=== PATIENT | male | born 1970 | race Caucasian/White ===

== ENCOUNTER → 2017-04-27 | Outpatient (CLI) | payer OTHER ==
[2017-04-27 10:25] LABS: APPEARANCE,URINE CLEAR; BILIRUBIN,URINE NEGATIVE (NEGATIVE); GLUCOSE, URINE NEGATIVE (NEGATIVE); KETONES,URINE NEGATIVE (NEGATIVE); LEUKOCYTE ESTERASE,URINE NEGATIVE (NEGATIVE); NITRITE,URINE NEGATIVE (NEGATIVE); PROTEIN,URINE NEGATIVE (NEGATIVE); URINE SPECIFIC GRAVITY 1.003; UROBILINOGEN,URINE NEGATIVE mg/dL (<2.0)
--- NOTE | 2017-04-27 15:50 | RADIOLOGY REPORT (SQ) ---
EXAM DESCRIPTION: U/S SCROTUM W/DOPPLER COMPLETED DATE/TIME: 04/27/2017 11:41 am REASON FOR STUDY: R TESTICLE LESION N50.9 DISORDER OF MALE GENITAL ORGANS, UNSPECIFIED R31.21 ASYM PTOMATIC MICROSCOPIC HEMATURIA COMPARISON: None. TECHNIQUE: Static and realtime nielsen scale imaging of the scrotum and testes. Selected color Doppler and spectral images recorded to document blood flow. LIMITATIONS: None. FINDINGS: RIGHT: TESTICLE: Normal size, 3.9 x 2.7 x 2.7 cm in size. Normal echotexture. Normal blood flow. No primar y intra testicular mass. EPIDIDYMIS: Normal. HYDROCELE OR VARICOCELE: Trace hydrocele HERNIA OR EXTRA-TESTICULAR MASS: No. OTHER: Along the tunica in the area of palpable abnormality indicated by the patient, there is a dens jus shadowing calcification measuring 5 x 4 mm in size. 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 Aga in, this appears to be superficial to the testicular parenchyma. LEFT: TESTICLE: Normal size 4.5 x 3.3 x 1.9 cm in size. Normal echotexture. Normal blood flow. No mass. EPIDIDYMIS: Normal. HYDROCELE OR VARICOCELE: No. HERNIA OR EXTRA-TESTICULAR MASS: No. OTHER: No other significant finding. 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 This appears to be superficial to the right testicle. TECHNICAL DOCUMENTATION: JOB ID: [id number] [employer]- All Rights Reserved
== END ==
LOC: RAD 09:02
PROVIDERS: ATTEND Urology
DX: N50.9 Disorder of male genital organs, unspecified (principal); R31.21 Asymptomatic microscopic hematuria
CPT/HCPCS: 76870; 81001; 93976

== ENCOUNTER 2020-03-14 17:17 | Observation (INO) | payer OTHER ==
[2020-03-14 17:58] LABS: ABSOLUTE BASOPHILS # (AUTO) 0.1 10^3/uL (0.0-0.2); ABSOLUTE EOSINOPHILS # (AUTO) 0.2 10^3/uL (0.0-0.6); ABSOLUTE LYMPHOCYTES (AUTO) 3.2 10^3/uL (0.5-4.7); ABSOLUTE MONOCYTES (AUTO) 1.2 10^3/uL (0.1-1.4); ABSOLUTE NEUT (AUTO) 9.7 10^3/uL (1.7-8.2); BASOPHILS % (AUTO) 0.6 % (0-2); EOSINOPHILS % (AUTO) 1.2 % (0-6); HEMATOCRIT 36.1 % (37.9-51.0); HEMOGLOBIN 12.4 g/dL (13.5-17.0); LYMPHOCYTES % (AUTO) 22.1 % (13-45); MEAN CORPUSCULAR HEMOGLOBIN 28.2 pg (27.0-33.4); MEAN CORPUSCULAR HGB CONC 34.3 g/dL (32.0-36.0); MEAN CORPUSCULAR VOLUME 82 fl (80-97); MONOCYTES % (AUTO) 8.6 % (3-13); PLATELET COUNT 322 10^3/uL (150-450); RED CELL DISTRIBUTION WIDTH 16.9 % (11.5-14.0); SEGMENTED NEUTROPHILS % (AUTO) 67.5 % (42-78); TOTAL CELLS COUNTED % (AUTO) 100 %; WHITE BLOOD COUNT 14.4 10^3/uL (4.0-10.5)
--- NOTE | 2020-03-14 18:05 | ER Document Report ---
ED General - General Stated Complaint: RESPIRATORY DISTRESS Primary Care Provider: MELBA LOTT MD [NO LOCAL MD] - Follow up as needed Mode of Arrival: Medic Information source: Patient Notes: Patient is a pleasant 50-year-old male presenting to the emergency department chief complaint of shortness of breath and heat exhaustion. Patient states that he did drink a lot of water and Gatorade today but was outside doing landscaping type work and began to be short of breath and then very weak. At time of presentation patient is alert but showing signs of malaise and fatigue. He states he is taking his medications as previously prescribed. Patient denies travel history trauma history or any sick contacts. Patient has been nauseated and vomited once no diarrhea. No one else at home is similarly ill. TRAVEL OUTSIDE OF THE [place] IN LAST 30 DAYS: No - HPI Onset: Just prior to arrival Onset/Duration: Gradual Quality of pain: Achy Severity: Moderate Pain Level: 3 Associated symptoms: Body/muscle aches, Nausea, Weakness. denies: Diarrhea, Vomiting Exacerbated by: Movement Relieved by: Denies Similar symptoms previously: No Recently seen / treated by doctor: No - Related Data Allergies/Adverse Reactions: No Known Allergies Allergy (Verified 03/14/20 18:30) Past Medical History - General Information source: Patient - Social History Smoking Status: Current Every Day Smoker Cigarette use (# per day): Yes Chew tobacco use (# tins/day): No Smoking Education Provided: Yes Frequency of alcohol use: None Drug Abuse: None Lives with: Family Family History: Reviewed & Not Pertinent Patient has suicidal ideation: No Patient has homicidal ideation: No - Past Medical History Cardiac Medical History: Denies: Hx Heart Attack, Hx Hypertension Pulmonary Medical History: Denies: Hx Asthma Neurological Medical History: Denies: Hx Cerebrovascular Accident, Hx Seizures GI Medical History: Denies: Hx Hepatitis, Hx Hiatal Hernia, Hx Ulcer Infectious Medical History: Denies: Hx Hepatitis Past Surgical History: Denies: Hx Open Heart Surgery, Hx Pacemaker Review of Systems - Review of Systems Notes: REVIEW OF SYSTEMS: CONSTITUTIONAL : Per HPI EENT: Denies eye, ear, throat, or mouth pain or symptoms. Denies nasal or sinus congestion. CARDIOVASCULAR: Denies chest pain. RESPIRATORY: Per HPI GASTROINTESTINAL: Denies abdominal pain. Denies nausea, vomiting, or diarrhea. Denies constipation. GENITOURINARY: Denies difficulty urinating, painful urination, burning, frequency, or blood in urine. MUSCULOSKELETAL: Per HPI SKIN: Denies rash or skin lesions. HEMATOLOGIC : Denies easy bruising or bleeding. NEUROLOGICAL: Denies altered mental status or loss of consciousness. Denies headache. Denies weakness or paralysis or loss of use of either side. Denies problems with gait or speech. Denies sensory or motor loss. PSYCHIATRIC: Denies suicidal or homicidal ideations 10 Systems are negative unless otherwise specified above Physical Exam - Vital signs Vitals: Temp 97.7 F 03/14/20 17:20 - Notes Notes: PHYSICAL EXAMINATION: GENERAL: Patient is a 50-year-old male presenting to the emergency department for heat exhaustion, at time of presentation patient is showing signs of malaise and fatigue. HEAD: Atraumatic, normocephalic. EYES: Pupils equal round and reactive to light, extraocular movements intact, sclera anicteric, conjunctiva are injected ENT: nares patent, oropharynx clear without exudates. Dry mucous membranes. NECK: Normal range of motion, supple without lymphadenopathy, no appreciable JVD LUNGS: Lungs demonstrate crackles to the right base HEART: Tachycardic rate and rhythm without murmurs ABDOMEN: Soft, nontender, decreased bowel sounds. No guarding, no rebound. No masses appreciated. EXTREMITIES: Active full range of motion, no pitting or edema. No cyanosis. 2+ pulses x4 patient has no cramps at this time NEUROLOGICAL: No focal neurological deficits. Moves all extremities spontaneously and on command. Patient is alert and oriented x3 but is demonstrating signs of malaise fatigue and somnolence SKIN: Warm, Dry, and intact. Decreased skin turgor and erythematous. 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 Patient has remained stable but still is complaining of cramps and generalized weakness. I have identified the patient to be hyponatremic blood sodium level of 119. This is concerning for possible seizures and patient will be consulted to the hospitalist for admission. Patient is receiving IV fluids for rehydration secondary to his heat exposure. Patient received 1 L of lactated Ringer's in the field and has received 1 L bolus of normal saline followed by 125 cc/h. 09/02/20 19:39 I did talk with the hospitalist he is agreeable with admitting the patient for heat exhaustion and hyponatremia. Patient is stable at this time. - Vital Signs Vital signs: Temp Pulse Resp BP Pulse Ox 97.7 F 24 H 123/79 99 03/14/20 17:20 03/14/20 19:01 03/14/20 19:01 03/14/20 19:01 - Laboratory Result Diagrams: 03/14/20 17:30 03/14/20 17:30 Laboratory results interpreted by me: 03/14/20 03/14/20 17:30 17:30 WBC 14.4 H Hgb 12.4 L Hct 36.1 L RDW 16.9 H Absolute Neuts (auto) 9.7 H Sodium 119.2 L* Chloride 87 L - Diagnostic Test Radiology reviewed: Reports reviewed - EKG Interpretation by Me EKG shows normal: Sinus rhythm Rate: Normal Rhythm: NSR When compared to previous EKG there are: Previous EKG unavailable Discharge - Discharge Clinical Impression: Hyponatremia Heat exhaustion Qualifiers: Encounter type: initial encounter Qualified Code(s): T67.5XXA - Heat exhaustion, unspecified, initial encounter Condition: Fair Disposition: ADMITTED OBSERVATION Admitting Provider: Arlet (Hospitalist) Unit Admitted: Medical Floor Referrals: MELBA LOTT MD [NO LOCAL MD] - Follow up as needed
[2020-03-14 18:16] LABS: ALKALINE PHOSPHATASE 105 U/L (38-126); ANION GAP 9 (5-19); ASPARTATE AMINO TRANSFERASE 22 U/L (17-59); BILIRUBIN,DIRECT 0.3 mg/dL (0.0-0.4); BILIRUBIN,TOTAL 0.7 mg/dL (0.2-1.3); BLOOD UREA NITROGEN 10 mg/dL (7-20); CARBON DIOXIDE 23 mmol/L (22-30); CHLORIDE 87 mmol/L (98-107); GLUCOSE 93 mg/dL (75-110); POTASSIUM 3.9 mmol/L (3.6-5.0); TOTAL PROTEIN 6.6 g/dL (6.3-8.2)
--- NOTE | 2020-03-14 18:19 | RADIOLOGY REPORT (SQ) ---
EXAM DESCRIPTION: CHEST SINGLE VIEW IMAGES COMPLETED DATE/TIME: 03/14/2020 5:02 pm REASON FOR STUDY: SOB COMPARISON: None. EXAM PARAMETERS: NUMBER OF VIEWS: One view. TECHNIQUE: Single frontal radiographic view of the chest acquired. RADIATION DOSE: NA LIMITATIONS: None. FINDINGS: LUNGS AND PLEURA: Lungs are hyperinflated. No focal consolidation or pleural effusion. N o pneumothorax. MEDIASTINUM AND HILAR STRUCTURES: No masses. Contour normal. HEART AND VASCULAR STRUCTURES: Heart normal in size. Normal vasculature. BONES: No acute findings. HARDWARE: None in the chest. OTHER: No other significant finding. IMPRESSION: NO ACUTE RADIOGRAPHIC FINDING IN THE CHEST. TECHNICAL DOCUMENTATION: JOB ID: [id number] [employer]- All Rights Reserved Reading location - IP/workstation name: [email or web address]
[2020-03-14] MEDS: NORMAL SALINE 1000 ML 1,000 ML IV PRN ×2 (18:25→19:01)
[2020-03-14 18:58] LABS: APPEARANCE,URINE CLEAR; BILIRUBIN,URINE NEGATIVE (NEGATIVE); COLOR,URINE STRAW; GLUCOSE, URINE NEGATIVE (NEGATIVE); KETONES,URINE NEGATIVE (NEGATIVE); LEUKOCYTE ESTERASE,URINE NEGATIVE (NEGATIVE); NITRITE,URINE NEGATIVE (NEGATIVE); PROTEIN,URINE NEGATIVE (NEGATIVE); URINE SPECIFIC GRAVITY 1.002; UROBILINOGEN,URINE NEGATIVE mg/dL (<2.0)
[2020-03-14 19:18] LABS: ADD MANUAL MICROSCOPIC YES; BACTERIA,URINE TRACE /HPF; RBC,URINE 0-1 /HPF
[2020-03-14] MEDS ORDERED: NORMAL SALINE 1000 ML 1,000 ML IV PRN (19:46)
[2020-03-14] MEDS ORDERED: RINGERS SOLUTION,LACTATED 1,000 ML IV PRN (20:06)
[2020-03-14] MEDS ORDERED: MAG HYDROX/AL HYDROX/SIMETH SUSP 30 ML UDCUP PO PRN (20:06)
[2020-03-14] MEDS ORDERED: MAGNESIUM HYDROXIDE SUSP 30 ML UDCUP PO PRN (20:06)
[2020-03-14] MEDS ORDERED: LEVALBUTEROL HCL NEB 0.63 MG/3 ML AMPUL NEB PRN (20:06)
[2020-03-14] MEDS ORDERED: ONDANSETRON HCL INJ/PF 4 MG/2 ML SDV IV PRN (20:06)
[2020-03-14] MEDS ORDERED: ACETAMINOPHEN 325 MG TABLET PO PRN (20:11)
[2020-03-14] MEDS ORDERED: MORPHINE SULFATE 10 MG/ML INJ IV PRN (20:11)
[2020-03-14] MEDS ORDERED: NICOTINE 21 MG/24 HR PATCH.TD24 TD PRN (20:11)
[2020-03-14] MEDS ORDERED: LORAZEPAM INJ 2 MG/1 ML VIAL IV PRN (20:11)
[2020-03-14] MEDS ORDERED: GUAIFENESIN SYRP 200 MG/10 ML UDC PO PRN (20:11)
[2020-03-14] MEDS ORDERED: MELATONIN 5 MG TABLET PO PRN (20:11)
[2020-03-14] MEDS ORDERED: IBUPROFEN 800 MG TABLET PO PRN (20:11)
[2020-03-14 21:13] LABS: CREATINE KINASE MB 1.18 ng/mL (<4.55); TROPONIN I < 0.012 ng/mL
[2020-03-14] MEDS: FAMOTIDINE 20 MG TABLET PO SCH (21:53)
[2020-03-14] MEDS: SODIUM BICARBONATE 650 MG TABLET PO SCH (21:53)
[2020-03-14] MEDS: HEPARIN SOD (PORCINE) 5,000 UNIT/ML 1 ML VIAL SUBCUT SCH (21:53)
--- NOTE | 2020-03-14 23:18 | PDOC H&P ---
History of Present Illness Admission Date/PCP: 03/14/2020 19:44 OREN,MELBA Patterson MD Patient complains of: Generalized weakness History of Present Illness: GAUDENCIO WESLEY is a 50 year old male who presented emergency room via EMS with acute generalized weakness. 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 His weakness was associated with severe muscle cramps and muscle aches as well as generalized malaise with fatigue. He also experienced one associated episode of nausea with vomiting. He tried drinking water and Gatorade without significant improvement. He denies other associated or accompanying signs and symptoms. He denies prior similar episodes. He has not identified any additional aggravating or ameliorating factors for his generalized weakness. In the emergency room he was found to have a mild leukocytosis and a moderate hyponatremia. He was treated for heat exhaustion with IV fluids and showed minimal to modest improvement. He was subsequently admitted to the hospital for further evaluation and treatment. Past Medical History Cardiac Medical History: Denies: Atrial Fibrillation, Coronary Artery Disease, DVT, Myocardial Infarction, Hyperlipidema, Hypertension, Pulmonary Embolism Pulmonary Medical History: Denies: Asthma, Chronic Obstructive Pulmonary Disease (COPD), Sleep Apnea EENT Medical History: Denies: Cataracts, Ears - Hearing aids Neurological Medical History: Denies: Hemorrhagic CVA, Ischemic CVA, Seizures Endocrine Medical History: Reports: Hypothyroidism Denies: Diabetes Mellitus Type 1, Diabetes Mellitus Type 2, Hyperthyroidism Renal/ Medical History: Denies: Chronic Kidney Disease, Nephrolithiasis Malignancy Medical History: Reports: None GI Medical History: Reports: Gastroesophageal Reflux Disease Denies: Cirrhosis, Crohn's Disease, Hepatitis, Hiatal Hernia, Peptic Ulcer Disease, Ulcerative Colitis Musculoskeltal Medical History: Denies: Arthritis, Gout Skin Medical History: Denies: Eczema, Psoriasis Psychiatric Medical History: Reports: General Anxiety Disorder, Tobacco Dependency Denies: Alcohol Dependency, Substance Abuse Traumatic Medical History: Reports: None Hematology: Denies: Anemia, Bleeding Tendencies Infectious Medical History: Reports: None Past Surgical History Past Surgical History: Reports: Cholecystectomy, Orthopedic Surgery - Left ankle: Floating bone fragment removed, Hip surgery, Splenectomy Social History Information Source: Patient Lives with: Spouse/Significant other Smoking Status: Current Every Day Smoker Cigarettes Packs Per Day: 1 Electronic Cigarette use?: No Frequency of Alcohol Use: Rare Hx Recreational Drug Use: No Drugs: None Hx Prescription Drug Abuse: No - Advance Directive Resuscitation Status: Full Code Surrogate healthcare decision maker:: Mayte Wesley Family History Family History: CAD, Thyroid Disfunction. denies: DM, Hypertension, Malignancy Parental Family History Reviewed: Yes Children Family History Reviewed: No Sibling(s) Family History Reviewed.: Yes Medication/Allergy Home Medications: Atorvastatin Calcium [Lipitor 10 mg Tablet] 10 mg PO QHS 03/14/20 Cholecalciferol (Vitamin D3) [Vitamin D3 1000 Unit Tablet] 5,000 unit PO QHS 03/14/20 Cyanocobalamin (Vitamin B-12) [Vitamin B-12 1000 Mcg Tablet] 1,000 mcg PO DAILY 03/14/20 Eszopiclone 6 mg PO QHS 03/14/20 Levothyroxine Sodium [Synthroid 0.075 mg Tablet] 0.075 mg PO Q6AM 03/14/20 Omeprazole 40 mg PO DAILY 03/14/20 Sertraline HCl [Zoloft 50 mg Tablet] 50 mg PO QHS 03/14/20 Thyroid (Pork) [[place] Thyroid 60 Mg Tablet] 60 mg PO DAILY 03/14/20 Allergies/Adverse Reactions: No Known Allergies Allergy (Verified 03/14/20 18:30) Review of Systems Constitutional: PRESENT: as per HPI, fatigue, weakness, other - Malaise. A BSENT: chills, fever(s) Eyes: ABSENT: visual disturbances, other - Eye pain Ears: ABSENT: hearing changes, other - Ear pain Nose, Mouth, and Throat: ABSENT: headache(s), sore throat - to the abdomen Cardiovascular: ABSENT: chest pain, palpitations Respiratory: PRESENT: as per HPI, cough - Occasional, dyspnea Gastrointestinal: PRESENT: as per HPI, nausea, vomiting. ABSENT: abdominal pain, constipation, diarrhea Genitourinary: ABSENT: dysuria, hematuria Musculoskeletal: PRESENT: as per HPI, muscle weakness, other - Generalized muscle aches and cramping. ABSENT: joint swelling Integumentary: ABSENT: pruritus, rash Neurological: ABSENT: confusion, convulsions, focal weakness, memory loss, syncope Psychiatric: ABSENT: anxiety, depression Endocrine: ABSENT: cold intolerance, heat intolerance Hematologic/Lymphatic: ABSENT: easy bleeding, easy bruising Allergic/Immunologic: ABSENT: seasonal rhinorrhea Physical Exam Vital Signs: Temp Pulse Resp BP Pulse Ox 97.7 F 24 H 123/79 99 03/14/20 17:20 03/14/20 19:01 03/14/20 19:01 03/14/20 19:01 Intake & Output 03/12/20 03/13/20 03/14/20 23:59 23:59 23:59 Intake Total 2583 Output Total 1980 Balance 603 Weight 100.1 kg General appearance: PRESENT: no acute distress, cooperative Head exam: PRESENT: atraumatic, normocephalic Eye exam: PRESENT: conjunctiva pink. ABSENT: conjunctival injection, scleral icterus Ear exam: PRESENT: normal external ear exam. ABSENT: bleeding, drainage Mouth exam: PRESENT: dry mucosa, neck supple Neck exam: ABSENT: thyromegaly, tracheal deviation Respiratory exam: PRESENT: rhonchi - Rare scattered rhonchi, symmetrical, unlabored Cardiovascular exam: PRESENT: RRR. ABSENT: clicks, gallop, rubs Pulses: PRESENT: normal radial pulses, normal dorsalis pedis pul Vascular exam: PRESENT: normal capillary refill. ABSENT: pallor GI/Abdominal exam: PRESENT: normal bowel sounds, soft. ABSENT: tenderness Rectal exam: PRESENT: deferred Extremities exam: ABSENT: joint swelling, pedal edema Musculoskeletal exam: ABSENT: deformity, dislocation Neurological exam: PRESENT: alert, oriented to person, oriented to place, oriented to time, oriented to situation, CN II-XII grossly intact. ABSENT: motor sensory deficit Psychiatric exam: PRESENT: appropriate affect, normal mood Skin exam: PRESENT: dry, intact, warm. ABSENT: jaundice, rash, urticaria Results Laboratory Results: 03/14/20 17:30 03/14/20 17:30 03/14/20 03/14/20 03/14/20 17:30 17:30 17:30 WBC 14.4 H RBC 4.40 Hgb 12.4 L Hct 36.1 L MCV 82 MCH 28.2 MCHC 34.3 RDW 16.9 H Plt Count 322 Seg Neutrophils % 67.5 Sodium 119.2 L* Potassium 3.9 Chloride 87 L Carbon Dioxide 23 Anion Gap 9 BUN 10 Creatinine 0.82 Est GFR ( Amer) > 60 Glucose 93 Calcium 9.0 Total Bilirubin 0.7 AST 22 Alkaline Phosphatase 105 Total Protein 6.6 Albumin 4.0 Lipase 51.6 Urine Color Urine Appearance Urine pH Ur Specific [place] Urine Protein Urine Glucose (UA) Urine Ketones Urine Blood Urine Nitrite Ur Leukocyte Esterase 03/14/20 18:10 WBC RBC Hgb Hct MCV MCH MCHC RDW Plt Count Seg Neutrophils % Sodium Potassium Chloride Carbon Dioxide Anion Gap BUN Creatinine Est GFR ( Amer) Glucose Calcium Total Bilirubin AST Alkaline Phosphatase Total Protein Albumin Lipase Urine Color STRAW Urine Appearance CLEAR Urine pH 6.0 Ur Specific [place] 1.002 Urine Protein NEGATIVE Urine Glucose (UA) NEGATIVE Urine Ketones NEGATIVE Urine Blood NEGATIVE Urine Nitrite NEGATIVE Ur Leukocyte Esterase NEGATIVE Impressions: Chest X-Ray 03/14/20 17:36 IMPRESSION: NO ACUTE RADIOGRAPHIC FINDING IN THE CHEST. Assessment and Plan - Diagnosis (1) Heat exhaustion Qualifiers: Encounter type: initial encounter Qualified Code(s): T67.5XXA - Heat exhaustion, unspecified, initial encounter Is this a current diagnosis for this admission?: Yes (2) Hyponatremia Is this a current diagnosis for this admission?: Yes (3) Hypothyroidism Qualifiers: Hypothyroidism type: unspecified Qualified Code(s): E03.9 - Hypothyroidism, unspecified Is this a current diagnosis for this admission?: Yes (4) Tobacco use disorder, continuous Is this a current diagnosis for this admission?: Yes - Plan Summary Summary: Patient will be admitted to observation status on the medical floor he will receive routine supportive and symptomatic cares. He will be treated with IV fluids utilizing lactated Ringer solution at 250 mL/h initially. He will rece ewa morphine sulfate 2 to 4 mg IV every 2 hours as needed for pain. He will use Ativan 1 mg IV every 4 hours as needed for anxiety or restlessness. He will be continued on his usual home medication of Synthroid 125 mcg daily. CBCs, metabolic profiles and additional laboratory and/or radiographic evaluations will be obtained as appropriate. A TSH and free T3 will be obtained. Patient will be on a regular diet. Smoking cessation is advised and counseled briefly at the bedside. And nicotine replacement patches available for the patient's use, if desired. - Time Time Spent with patient: 15-24 minutes Smoking Cessation Education: 3 to 10 minutes Medications reviewed and adjusted accordingly: Yes Anticipated Discharge Disposition: Home, Self Care Anticipated Discharge Timeframe: within 48 hours - Inpatient Certification Based on my medical assessment, after consideration of the patient's comorbidities, presenting symptoms, or acuity I expect that the services needed warrant INPATIENT care.: No I certify that my determination is in accordance with my understanding of Medicare's requirements for reasonable and necessary INPATIENT services [42 CFR 412.3e].: No Medical Necessity: Need Close Monitoring Due to Risk of Patient Decompensation, Need For IV Fluids, Risk of Complication if Not Cared For in Hospital
[2020-03-15 01:30] LABS: ANION GAP 7 (5-19); BLOOD UREA NITROGEN 8 mg/dL (7-20); CALCIUM 9.1 mg/dL (8.4-10.2); CARBON DIOXIDE 24 mmol/L (22-30); CHLORIDE 107 mmol/L (98-107); GLUCOSE 111 mg/dL (75-110); POTASSIUM 4.5 mmol/L (3.6-5.0)
[2020-03-15 01:45] LABS: CREATINE KINASE MB 0.74 ng/mL (<4.55)
[2020-03-15 01:46] LABS: TROPONIN I < 0.012 ng/mL
[2020-03-15] MEDS: HEPARIN SOD (PORCINE) 5,000 UNIT/ML 1 ML VIAL SUBCUT SCH ×3 (05:26→22:37)
[2020-03-15] MEDS ORDERED: LEVOTHYROXINE SODIUM 0.05 MG TABLET PO SCH (06:00)
--- NOTE | 2020-03-15 07:46 | EKG REPORT ---
SEVERITY:- NORMAL ECG - SINUS RHYTHM : Confirmed by: Stefano Cotto MD 15-Mar-2020 07:45:43
[2020-03-15] MEDS ORDERED: VANCOMYCIN HCL 0 MG in DEXTROSE 5%-WATER 250 ML IV NR (09:15)
[2020-03-15 09:52] LABS: HEMATOCRIT 36.3 % (37.9-51.0); HEMOGLOBIN 12.3 g/dL (13.5-17.0); MEAN CORPUSCULAR HEMOGLOBIN 28.2 pg (27.0-33.4); MEAN CORPUSCULAR HGB CONC 33.8 g/dL (32.0-36.0); MEAN CORPUSCULAR VOLUME 83 fl (80-97); PLATELET COUNT 328 10^3/uL (150-450); RED BLOOD COUNT 4.36 10^6/uL (4.35-5.55); RED CELL DISTRIBUTION WIDTH 16.7 % (11.5-14.0); WHITE BLOOD COUNT 6.9 10^3/uL (4.0-10.5)
[2020-03-15] MEDS: SODIUM BICARBONATE 650 MG TABLET PO SCH ×2 (09:56→18:33)
[2020-03-15] MEDS: FAMOTIDINE 20 MG TABLET PO SCH ×2 (09:56→22:38)
[2020-03-15] MEDS: CEFTRIAXONE 2 GM/D5W RTU 2 GM/50 ML RTUPB IV SCH (09:58)
[2020-03-15] MEDS ORDERED: DOCUSATE SODIUM 100 MG CAPSULE PO SCH (10:00)
[2020-03-15 10:15] LABS: BLOOD UREA NITROGEN 7 mg/dL (7-20); CALCIUM 8.9 mg/dL (8.4-10.2); GLUCOSE 94 mg/dL (75-110); POTASSIUM 4.5 mmol/L (3.6-5.0)
[2020-03-15 10:23] LABS: ANION GAP 5 (5-19); CARBON DIOXIDE 24 mmol/L (22-30); CHLORIDE 111 mmol/L (98-107)
[2020-03-15 10:31] LABS: CREATINE KINASE MB 0.29 ng/mL (<4.55)
[2020-03-15 10:35] LABS: TROPONIN I < 0.012 ng/mL
[2020-03-15] MEDS: VANCOMYCIN HCL 1,500 MG in DEXTROSE 5%-WATER 250 ML IV SCH ×2 (13:44→22:38)
--- NOTE | 2020-03-15 17:45 | PDOC PROGRESS REPORT ---
Subjective Progress Note for:: 03/15/20 Subjective:: Feeling very well. Denies fevers/chills/rigors. Has chronic low back pain, unchanged. Reason For Visit: strep bacteremia Physical Exam Vital Signs: Temp Pulse Resp BP Pulse Ox 98.6 F 56 L 18 120/53 L 96 03/15/20 16:15 03/15/20 16:15 03/15/20 16:15 03/15/20 16:15 03/15/20 16:15 Intake & Output 03/14/20 03/15/20 03/16/20 06:59 06:59 06:59 Intake Total 3383 850 Output Total 6680 800 Balance -3297 50 Weight 99.1 kg General appearance: PRESENT: no acute distress, well-developed, well-nourished Head exam: PRESENT: atraumatic, normocephalic Eye exam: PRESENT: conjunctiva pink, EOMI, PERRLA. ABSENT: scleral icterus Ear exam: PRESENT: normal external ear exam Mouth exam: PRESENT: moist, tongue midline Neck exam: ABSENT: carotid bruit, JVD, lymphadenopathy, thyromegaly Respiratory exam: PRESENT: clear to auscultation sue. ABSENT: rales, rhonchi, wheezes Cardiovascular exam: PRESENT: RRR. ABSENT: diastolic murmur, rubs, systolic murmur Pulses: PRESENT: normal dorsalis pedis pul Vascular exam: PRESENT: normal capillary refill GI/Abdominal exam: PRESENT: normal bowel sounds, soft. ABSENT: distended, guarding, mass, organolmegaly, rebound, tenderness Rectal exam: PRESENT: deferred Extremities exam: PRESENT: full ROM. ABSENT: calf tenderness, clubbing, pedal edema Musculoskeletal exam: PRESENT: ambulatory Neurological exam: PRESENT: alert, awake, oriented to person, oriented to place, oriented to time, oriented to situation, reflexes normal, CN II-XII grossly intact, normal gait. ABSENT: motor sensory deficit Psychiatric exam: PRESENT: appropriate affect, normal mood. ABSENT: homicidal ideation, suicidal ideation Skin exam: PRESENT: dry, intact, warm. ABSENT: cyanosis, rash, skin tears Results Laboratory Results: 03/15/20 09:13 03/15/20 09:13 03/14/20 03/14/20 03/14/20 17:30 17:30 17:30 WBC 14.4 H RBC 4.40 Hgb 12.4 L Hct 36.1 L MCV 82 MCH 28.2 MCHC 34.3 RDW 16.9 H Plt Count 322 Seg Neutrophils % 67.5 Sodium 119.2 L* Potassium 3.9 Chloride 87 L Carbon Dioxide 23 Anion Gap 9 BUN 10 Creatinine 0.82 Est GFR ( Amer) > 60 Glucose 93 Lactic Acid Calcium 9.0 Magnesium Total Bilirubin 0.7 AST 22 Alkaline Phosphatase 105 Total Protein 6.6 Albumin 4.0 Lipase 51.6 TSH Urine Color Urine Appearance Urine pH Ur Specific [place] Urine Protein Urine Glucose (UA) Urine Ketones Urine Blood Urine Nitrite Ur Leukocyte Esterase 03/14/20 03/15/20 03/15/20 18:10 01:02 09:13 WBC 6.9 RBC 4.36 Hgb 12.3 L Hct 36.3 L MCV 83 MCH 28.2 MCHC 33.8 RDW 16.7 H Plt Count 328 Seg Neutrophils % Sodium 137.7 Potassium 4.5 Chloride 107 Carbon Dioxide 24 Anion Gap 7 BUN 8 Creatinine 0.71 Est GFR ( Amer) > 60 Glucose 111 H Lactic Acid Calcium 9.1 Magnesium Total Bilirubin AST Alkaline Phosphatase Total Protein Albumin Lipase TSH Urine Color STRAW Urine Appearance CLEAR Urine pH 6.0 Ur Specific [place] 1.002 Urine Protein NEGATIVE Urine Glucose (UA) NEGATIVE Urine Ketones NEGATIVE Urine Blood NEGATIVE Urine Nitrite NEGATIVE Ur Leukocyte Esterase NEGATIVE 03/15/20 03/15/20 03/15/20 09:13 09:13 11:00 WBC RBC Hgb Hct MCV MCH MCHC RDW Plt Count Seg Neutrophils % Sodium 139.7 Potassium 4.5 Chloride 111 H Carbon Dioxide 24 Anion Gap 5 BUN 7 Creatinine 0.75 Est GFR ( Amer) > 60 Glucose 94 Lactic Acid 1.0 Calcium 8.9 Magnesium 2.4 H Total Bilirubin AST Alkaline Phosphatase Total Protein Albumin Lipase TSH 0.47 Urine Color Urine Appearance Urine pH Ur Specific [place] Urine Protein Urine Glucose (UA) Urine Ketones Urine Blood Urine Nitrite Ur Leukocyte Esterase 03/15/20 15:21 WBC RBC Hgb Hct MCV MCH MCHC RDW Plt Count Seg Neutrophils % Sodium Potassium Chloride Carbon Dioxide Anion Gap BUN Creatinine Est GFR ( Amer) Glucose Lactic Acid 1.2 Calcium Magnesium Total Bilirubin AST Alkaline Phosphatase Total Protein Albumin Lipase TSH Urine Color Urine Appearance Urine pH Ur Specific [place] Urine Protein Urine Glucose (UA) Urine Ketones Urine Blood Urine Nitrite Ur Leukocyte Esterase 03/14/20 17:30 Blood Blood Culture (PCR) - Final Streptococcus Species 03/14/20 03/14/20 03/15/20 17:30 17:30 01:02 Creatine Kinase 199 H 159 CK-MB (CK-2) 1.18 Troponin I < 0.012 03/15/20 03/15/20 03/15/20 01:02 09:13 09:13 Creatine Kinase 121 CK-MB (CK-2) 0.74 0.29 Troponin I < 0.012 < 0.012 Impressions: Chest X-Ray 03/14/20 17:36 IMPRESSION: NO ACUTE RADIOGRAPHIC FINDING IN THE CHEST. Assessment and Plan - Plan Summary Summary: Strep Bacteremia - 1/2 of BCx from 03/14 are growing strep species (unclear if this is a contaminant) - start antibiotics with ceftriaxone/vancomycin - repeat BCx daily - WBC initially minimally elevated on admission, but may have been due to hypovolemia/fluid contraction, now normalized - no reason to suspect endocarditis as patient adamantly denies heart condition, has no murmur, denies IVDU and has no other skin tears/wounds or internal surgical hardware - he denies fevers/chills or recent illness Hypovolemic Hyponatremia: due to dehydration, resolved - corrected with aggressive IVF administration on admission as it was felt that patient had an acutely decreased Na, and so it was unlikely to be dangerous to correct rapidly - he is fully alert, oriented and has no neurological deficits - continue neuro checks Q4H for now - DC IVF - Time Time Spent with patient: 35 or more minutes Anticipated Discharge Disposition: Home, Self Care Anticipated Discharge Timeframe: within 72 hours
[2020-03-15] MEDS ORDERED: SERTRALINE HCL 50 MG TABLET PO ONE (23:30)
[2020-03-16] MEDS: VANCOMYCIN HCL 1,500 MG in DEXTROSE 5%-WATER 250 ML IV SCH ×3 (05:42→21:05)
[2020-03-16] MEDS: HEPARIN SOD (PORCINE) 5,000 UNIT/ML 1 ML VIAL SUBCUT SCH ×3 (05:43→21:06)
[2020-03-16] MEDS ORDERED: LEVOTHYROXINE SODIUM 0.075 MG TABLET PO SCH (06:00)
[2020-03-16 06:32] LABS: HEMATOCRIT 35.5 % (37.9-51.0); HEMOGLOBIN 12.3 g/dL (13.5-17.0); MEAN CORPUSCULAR HEMOGLOBIN 28.7 pg (27.0-33.4); MEAN CORPUSCULAR HGB CONC 34.7 g/dL (32.0-36.0); MEAN CORPUSCULAR VOLUME 83 fl (80-97); PLATELET COUNT 303 10^3/uL (150-450); RED BLOOD COUNT 4.29 10^6/uL (4.35-5.55); RED CELL DISTRIBUTION WIDTH 17.3 % (11.5-14.0); WHITE BLOOD COUNT 9.8 10^3/uL (4.0-10.5)
[2020-03-16] MEDS ORDERED: LEVOTHYROXINE SODIUM 0.075 MG TABLET ONE (06:54)
[2020-03-16] MEDS: LEVOTHYROXINE SODIUM 0.075 MG TABLET PO SCH (07:00)
[2020-03-16 07:01] LABS: BLOOD UREA NITROGEN 10 mg/dL (7-20); CALCIUM 8.6 mg/dL (8.4-10.2); CARBON DIOXIDE 26 mmol/L (22-30); CHLORIDE 107 mmol/L (98-107); GLUCOSE 106 mg/dL (75-110); POTASSIUM 4.5 mmol/L (3.6-5.0)
[2020-03-16 07:10] LABS: ANION GAP 4 (5-19)
[2020-03-16] MEDS: FAMOTIDINE 20 MG TABLET PO SCH ×2 (09:49→21:06)
[2020-03-16] MEDS: CEFTRIAXONE 2 GM/D5W RTU 2 GM/50 ML RTUPB IV SCH (09:49)
[2020-03-16] MEDS: CYANOCOBALAMIN (VITAMIN B-12) 1,000 MCG TABLET PO SCH (09:49)
[2020-03-16] MEDS: CHOLECALCIFEROL (D3) 1,000 UNIT (25 MCG) TABLET PO SCH (09:52)
[2020-03-16 14:43] LABS: VANCOMYCIN,TROUGH 15.2 ug/mL (5.0-20.0)
--- NOTE | 2020-03-16 19:32 | PDOC PROGRESS REPORT ---
Subjective Progress Note for:: 03/16/20 Subjective:: Feeling well and denies fevers chills rigors. Reason For Visit: HYPONATREMIA,HEAT EXHAUSTION Physical Exam Vital Signs: Temp Pulse Resp BP Pulse Ox 98.0 F 46 L 16 105/59 L 99 03/16/20 15:10 03/16/20 15:10 03/16/20 15:10 03/16/20 15:10 03/16/20 15:10 Intake & Output 03/15/20 03/16/20 03/17/20 06:59 06:59 06:59 Intake Total 3383 3900 944 Output Total 6680 3600 1050 Balance -3297 300 -106 Weight 99.1 kg 99.1 kg Additional comments: General: sitting up in chair, conversive, appears well Head: normocephalic, atraumatic Eyes: anicteric sclera ENT: moist mucus memranes, no oropharyngeal erythema/exudate Neck: no lymphadenopathy Lungs: clear to auscultation bilaterally Heart: regular rate and rhythm, no murmurs/rubs/gallops Abdomen: normoactive bowel sounds, soft, non-tender, non-distended : no CVA tenderness, no suprapubic tenderness Extremities: warm and well perfused, no edema Vascular: 2+ peripheral pulses in all extremities Neuro: A&Ox3 Skin: no rash Results Laboratory Results: 03/16/20 06:10 03/16/20 06:10 03/16/20 03/16/20 06:10 06:10 WBC 9.8 RBC 4.29 L Hgb 12.3 L Hct 35.5 L MCV 83 MCH 28.7 MCHC 34.7 RDW 17.3 H Plt Count 303 Sodium 137.4 Potassium 4.5 Chloride 107 Carbon Dioxide 26 Anion Gap 4 L BUN 10 Creatinine 0.76 Est GFR ( Amer) > 60 Glucose 106 Calcium 8.6 Magnesium 2.2 03/14/20 17:30 Blood Blood Culture (PCR) - Final Streptococcus Species 03/14/20 03/14/20 03/15/20 17:30 17:30 01:02 Creatine Kinase 199 H 159 CK-MB (CK-2) 1.18 Troponin I < 0.012 03/15/20 03/15/20 03/15/20 01:02 09:13 09:13 Creatine Kinase 121 CK-MB (CK-2) 0.74 0.29 Troponin I < 0.012 < 0.012 Impressions: Chest X-Ray 03/14/20 17:36 IMPRESSION: NO ACUTE RADIOGRAPHIC FINDING IN THE CHEST. Assessment and Plan - Plan Summary Summary: Strep Bacteremia - 1/2 of BCx from 03/14 are growing strep species - start antibiotics with ceftriaxone/vancomycin - repeat BCx daily - WBC initially minimally elevated on admission, but may have been due to hypovolemia/fluid contraction, now normalized - no reason to suspect endocarditis as patient adamantly denies heart condition, has no murmur, denies IVDU and has no other skin tears/wounds or internal surgical hardware - he denies fevers/chills or recent illness - most likely a contaminant, and if BCx remain negative tomorrow, will plan to DC antibx and discharge pt home Hypovolemic Hyponatremia: due to dehydration, resolved - corrected with aggressive IVF administration on admission as it was felt that patient had an acutely decreased Na, and so it was unlikely to be dangerous to correct rapidly - he is fully alert, oriented and has no neurological deficits - Time Time Spent with patient: 35 or more minutes Anticipated Discharge Disposition: Home, Self Care Anticipated Discharge Timeframe: within 24 hours
[2020-03-16 21:44] LABS: VANCOMYCIN,TROUGH 17.5 ug/mL (5.0-20.0)
[2020-03-16] MEDS ORDERED: SERTRALINE HCL 50 MG TABLET PO SCH ×2 (22:00)
[2020-03-16] MEDS ORDERED: ATORVASTATIN CALCIUM 10 MG TABLET PO SCH (22:00)
[2020-03-17] MEDS: VANCOMYCIN HCL 1,500 MG in DEXTROSE 5%-WATER 250 ML IV SCH (05:30)
[2020-03-17] MEDS: HEPARIN SOD (PORCINE) 5,000 UNIT/ML 1 ML VIAL SUBCUT SCH (05:30)
[2020-03-17] MEDS: LEVOTHYROXINE SODIUM 0.075 MG TABLET PO SCH (05:30)
[2020-03-17 08:55] VITALS: BP 115/70
[2020-03-17] MEDS: CYANOCOBALAMIN (VITAMIN B-12) 1,000 MCG TABLET PO SCH (09:18)
[2020-03-17] MEDS: FAMOTIDINE 20 MG TABLET PO SCH (09:18)
[2020-03-17] MEDS: CHOLECALCIFEROL (D3) 1,000 UNIT (25 MCG) TABLET PO SCH (09:18)
--- NOTE | 2020-03-17 21:39 | PDOC DISCHARGE SUMMARY ---
Impression - Admit/DC Date/PCP Admission Date/Primary Care Provider: 03/14/20 19:54 TJ ARELLANO NP Discharge Date: 03/17/20 - Discharge Diagnosis (1) Blood culture positive for microorganism Is this a current diagnosis for this admission?: Yes (2) Contamination of blood culture Is this a current diagnosis for this admission?: Yes (3) Hyponatremia Is this a current diagnosis for this admission?: Yes (4) Hypothyroidism Is this a current diagnosis for this admission?: Yes (5) Tobacco use disorder, continuous Is this a current diagnosis for this admission?: Yes - Assessment Summary: GAUDENCIO WESLEY is a 50 year old male who presented emergency room via EMS with acute generalized weakness. He admits to being outside in the heat, doing landscaping and yard work when he developed severe generalized weakness. His weakness was associated with severe muscle cramps and muscle aches as well as generalized malaise with fatigue. He also experienced one associated episode of nausea with vomiting. He tried drinking water and Gatorade without significant improvement. He denies other associated or accompanying signs and symptoms. Hypovolemic Hyponatremia: he was initially found to have moderately severe hyponatremia, likely due to dehydration, which resolved with IVF hydration. Strep Bacteremia: 1 out of 2 of BCx from 03/14 grew 2 different forms of strep species, so he was started on antibiotics with ceftriaxone/vancomycin. His BCx were repeated daily x3 days and were otherwise all negative. We have no reason to suspect endocarditis as patient adamantly denies heart condition, has no murmur, denies IVDU and has no other skin tears/wounds or internal surgical hardware. He and his denied fevers/chills or recent illness. It was felt that this was most likely a contaminant, especially given that there were 2 different organisms and only isolated in one culture bottle, so antibx were discontinued and patient was discharged home in good condition. - Additional Information Resuscitation Status: Full Code Discharge Diet: Regular Discharge Activity: Activity As Tolerated Referrals: TJ ARELLANO NP [Primary Care Provider] - Home Medications: Atorvastatin Calcium [Lipitor 10 mg Tablet] 10 mg PO QHS 03/14/20 Cholecalciferol (Vitamin D3) [Vitamin D3 1000 Unit Tablet] 5,000 unit PO QHS 03/14/20 Cyanocobalamin (Vitamin B-12) [Vitamin B-12 1000 Mcg Tablet] 1,000 mcg PO DAILY 03/14/20 Levothyroxine Sodium [Synthroid 0.075 mg Tablet] 0.075 mg PO Q6AM 03/14/20 RX: Eszopiclone 6 mg PO QHS 03/14/20 RX: Omeprazole 40 mg PO DAILY 03/14/20 Sertraline HCl [Zoloft 50 mg Tablet] 50 mg PO QHS 03/14/20 Thyroid (Pork) [[place] Thyroid 60 Mg Tablet] 60 mg PO DAILY 03/14/20 History of Present Illiness History of Present Illness: GAUDENCIO WESLEY is a 50 year old male Physical Exam Vital Signs: Temp Pulse Resp BP Pulse Ox 97.5 F 55 L 16 115/70 99 03/17/20 10:33 03/17/20 10:33 03/17/20 10:33 03/17/20 10:33 03/17/20 10:33 Intake & Output 03/16/20 03/17/20 03/18/20 06:59 06:59 06:59 Intake Total 3900 2314 250 Output Total 3600 2250 Balance 300 64 250 Weight 99.1 kg 101.4 kg Results Laboratory Results: WBC 9.8 10^3/uL (4.0-10.5) 03/16/20 06:10 RBC 4.29 10^6/uL (4.35-5.55) L 03/16/20 06:10 Hgb 12.3 g/dL (13.5-17.0) L 03/16/20 06:10 Hct 35.5 % (37.9-51.0) L 03/16/20 06:10 MCV 83 fl (80-97) 03/16/20 06:10 MCH 28.7 pg (27.0-33.4) 03/16/20 06:10 MCHC 34.7 g/dL (32.0-36.0) 03/16/20 06:10 RDW 17.3 % (11.5-14.0) H 03/16/20 06:10 Plt Count 303 10^3/uL (150-450) 03/16/20 06:10 Lymph % (Auto) 22.1 % (13-45) 03/14/20 17:30 [place] % (Auto) 8.6 % (3-13) 03/14/20 17:30 Eos % (Auto) 1.2 % (0-6) 03/14/20 17:30 Baso % (Auto) 0.6 % (0-2) 03/14/20 17:30 Absolute Neuts (auto) 9.7 10^3/uL (1.7-8.2) H 03/14/20 17:30 Absolute Lymphs (auto) 3.2 10^3/uL (0.5-4.7) 03/14/20 17:30 Absolute Monos (auto) 1.2 10^3/uL (0.1-1.4) 03/14/20 17:30 Absolute Eos (auto) 0.2 10^3/uL (0.0-0.6) 03/14/20 17:30 Absolute Basos (auto) 0.1 10^3/uL (0.0-0.2) 03/14/20 17:30 Seg Neutrophils % 67.5 % (42-78) 03/14/20 17:30 Sodium 137.4 mmol/L (137-145) 03/16/20 06:10 Potassium 4.5 mmol/L (3.6-5.0) 03/16/20 06:10 Chloride 107 mmol/L (98-107) 03/16/20 06:10 Carbon Dioxide 26 mmol/L (22-30) 03/16/20 06:10 Anion Gap 4 (5-19) L 03/16/20 06:10 BUN 10 mg/dL (7-20) 03/16/20 06:10 Creatinine 0.76 mg/dL (0.52-1.25) 03/16/20 06:10 Est GFR ( Amer) > 60 (>60) 03/16/20 06:10 Est GFR (MDRD) Non-Af > 60 (>60) 03/16/20 06:10 Glucose 106 mg/dL (75-110) 03/16/20 06:10 Lactic Acid 1.2 mmol/L (0.7-2.1) 03/15/20 15:21 Calcium 8.6 mg/dL (8.4-10.2) 03/16/20 06:10 Magnesium 2.2 mg/dL (1.6-2.3) 03/16/20 06:10 Total Bilirubin 0.7 mg/dL (0.2-1.3) 03/14/20 17:30 Direct Bilirubin 0.3 mg/dL (0.0-0.4) 03/14/20 17:30 Neonat Total Bilirubin Not Reportable 03/14/20 17:30 Neonat Direct Bilirubin Not Reportable 03/14/20 17:30 Neonat Indirect Bili Not Reportable 03/14/20 17:30 AST 22 U/L (17-59) 03/14/20 17:30 ALT 13 U/L (<50) 03/14/20 17:30 Alkaline Phosphatase 105 U/L (38-126) 03/14/20 17:30 Creatine Kinase 121 U/L (55-170) 03/15/20 09:13 CK-MB (CK-2) 0.29 ng/mL (<4.55) 03/15/20 09:13 Troponin I < 0.012 ng/mL 03/15/20 09:13 Total Protein 6.6 g/dL (6.3-8.2) 03/14/20 17:30 Albumin 4.0 g/dL (3.5-5.0) 03/14/20 17:30 Lipase 51.6 U/L (23-300) 03/14/20 17:30 TSH 0.47 uIU/mL (0.47-4.68) 03/15/20 09:13 Urine Color STRAW 03/14/20 18:10 Urine Appearance CLEAR 03/14/20 18:10 Urine pH 6.0 (5.0-9.0) 03/14/20 18:10 Ur Specific [place] 1.002 03/14/20 18:10 Urine Protein NEGATIVE mg/dL (NEGATIVE) 03/14/20 18:10 Urine Glucose (UA) NEGATIVE mg/dL (NEGATIVE) 03/14/20 18:10 Urine Ketones NEGATIVE mg/dL (NEGATIVE) 03/14/20 18:10 Urine Blood NEGATIVE (NEGATIVE) 03/14/20 18:10 Urine Nitrite NEGATIVE (NEGATIVE) 03/14/20 18:10 Urine Bilirubin NEGATIVE (NEGATIVE) 03/14/20 18:10 Urine Urobilinogen NEGATIVE mg/dL (<2.0) 03/14/20 18:10 Ur Leukocyte Esterase NEGATIVE (NEGATIVE) 03/14/20 18:10 Urine RBC 0-1 /HPF 03/14/20 18:10 Urine WBC 1-5 /HPF 03/14/20 18:10 Urine Bacteria TRACE /HPF 03/14/20 18:10 Urine Ascorbic Acid NEGATIVE (NEGATIVE) 03/14/20 18:10 Time Trough Drawn 210003/16/20 21:01 Vancomycin Trough 17.5 ug/mL (5.0-20.0) 03/16/20 21:01 03/14/20 03/15/20 03/15/20 17:30 01:02 09:13 CK-MB (CK-2) 1.18 0.74 0.29 Troponin I < 0.012 < 0.012 < 0.012 Impressions: Chest X-Ray 03/14/20 17:36 IMPRESSION: NO ACUTE RADIOGRAPHIC FINDING IN THE CHEST. Stroke Is this a Stroke Patient?: No Acute Heart Failure - Is this a Heart Failure Patient?: No
== END 2020-03-17 11:00 | disposition home or self-care (01) ==
LOC: ER 17:17 → EH 19:54 → 4N 21:36
PROVIDERS: ADMIT Emergency Medicine; ATTEND Hospitalist
DX: E87.1 Hypo-osmolality and hyponatremia (principal); E86.1 Hypovolemia; R78.81 Bacteremia; E03.9 Hypothyroidism, unspecified; F17.210 Nicotine dependence, cigarettes, uncomplicated; T67.5XXA Heat exhaustion, unspecified, initial encounter; X58.XXXA Exposure to other specified factors, initial encounter; R06.00 Dyspnea, unspecified; D72.829 Elevated white blood cell count, unspecified; G89.29 Other chronic pain; M54.5 Low back pain; E86.0 Dehydration; K21.9 Gastro-esophageal reflux disease without esophagitis; Z90.49 Acquired absence of other specified parts of digestive tract; Z90.81 Acquired absence of spleen; Z82.49 Family history of ischemic heart disease and other diseases of the circulatory system; Z79.899 Other long term (current) drug therapy; Z79.890 Hormone replacement therapy
CPT/HCPCS: 93005; 99285; 96360; 36415 ×3; 87040 ×3; 82553 ×2; 82550 ×2; 83605; 83690; 83735 ×2; 84443; 85025; 85027 ×2; 87077; 80048 ×2; 80053; 81001; 84484 ×2; 87186; 80202; 87150 ×26; 71045; 93010; 99406; G0378 ×5; J1644 ×4; J3490 ×3; J7060 ×3; J7030; J3370 ×3; J0696 ×2